=== PATIENT | female | born 2000 ===

== ENCOUNTER 2020-10-21 08:32 | Emergency (ER) | payer OTHER ==
[~2020-10-21] VITALS: Ht 160 cm; Wt 74.8 kg
== END 2020-10-21 12:49 | disposition home or self-care (01) ==
LOC: ER 08:32
DX: S33.5XXA Sprain of ligaments of lumbar spine, initial encounter (principal); X50.9XXA Other and unspecified overexertion or strenuous movements or postures, initial encounter; Y93.89 Activity, other specified; Y92.89 Other specified places as the place of occurrence of the external cause; Y99.8 Other external cause status